=== PATIENT | female | born 1950 | race Caucasian/White ===

== ENCOUNTER → 2018-05-15 | Outpatient (CLI) | payer OTHER ==
--- NOTE | ~2018-05-15 | 2DMMODE ---
[facility] [email or web address] [address] 2 D/M-MODE ECHOCARDIOGRAM Name: BEN TARANGO Room #: REG [facility]#: [id number] Admission: 05/15/18 Attend Phys: Physician not on s Discharge: Date of : 54 Date of Service: 05/15/18 1218 Report #: [id number] THIS REPORT FOR: //name// APPROVED REPORT Study performed: 05/15/2018 11:01:43 EXAM: Comprehensive 2D, Doppler, and color-flow Echocardiogram Patient Location: Out-Patient Status: routine BSA: 1.65 HR: 90 bpm Rhythm: NSR Other Information Study Quality: Good Indications Hypertension/HDD 2D Dimensions RVDd: 25.42 mm IVSd: 9.05 (7-11mm) LVOT Diam: 20.16 (18-24mm) LVDd: 38.84 mm PWd: 8.99 (7-11mm) Ascending Ao: 25.55 (22-36mm) LVDs: 25.45 (25-40mm) Aortic Root: 25.38 mm Volumes Left Atrial Volume (Systole) Single Plane 4CH: 21.36 mL Single Plane 2CH: 42.65 mL LA ESV Index: 19.00 mL/m2 Aortic Valve AoV Peak Murtaza.: 1.43 m/s AO Peak Gr.: 8.22 mmHg LVOT Max P.84 mmHg LVOT Max V: 1.21 m/s HA Vmax: 2.69 cm2 Mitral Valve E/A Ratio: 0.7 MV Decel. Time: 186.84 ms MV E Max Murtaza.: 0.75 m/s [facility] [address] [place] [address] 2 D/M-MODE ECHOCARDIOGRAM Name: BEN TARANGO Room #: REG [facility]#: [id number] Admission: 05/15/18 Attend Phys: Physician not on s Discharge: Date of : 54 Date of Service: 05/15/18 1218 Report #: [id number] MV A Murtaza.: 1.01 m/s MV PHT: 54.18 ms IVRT: 124.57 ms Pulmonary Valve PV Peak Murtaza.: 1.07 m/s PV Peak Gr.: 4.56 mmHg Pulmonary Vein P Vein S: 0.87 m/s P Vein A: 0.16 m/s P Vein D: 0.48 m/s P Vein A Dur.: 110.7 msec P Vein S/D Ratio: 1.81 Tricuspid Valve TR Peak Murtaza.: 2.48 m/s RAP Estimate: 5.00 mmHg TR Peak Gr.: 24.63 mmHg PA Pressure: 30.00 mmHg Left Ventricle The left ventricle is normal size. There is normal LV segmental wall motion. There is normal left ventricular wall thickness. The left ventricular systolic function is normal. LVEF is 60-65%. Mild diastolic dysfunction is present (impaired relaxation pattern). Right Ventricle The right ventricle is normal size. The right ventricular systolic function is normal. Atria The left atrium size is normal. The right atrium size is normal. Aortic Valve Aortic valve leaflets are mildly thickened. Mild aortic regurgitation. There is no aortic valvular stenosis. Mitral Valve Mitral valve leaflets are mildly thickened. Mild mitral regurgitation. No evidence of mitral valve stenosis. Tricuspid Valve The tricuspid valve is normal in structure. Mild tricuspid regurgitation. Estimated PAP is 30mmHg. Pulmonic Valve The pulmonary valve is normal in structure. Trace pulmonic [facility] [address] [place] [address] 2 D/M-MODE ECHOCARDIOGRAM Name: BEN TARANGO Leandro Room #: REG [facility]#: [id number] Admission: 05/15/18 Attend Phys: Physician not on s Discharge: Date of : 54 Date of Service: 05/15/18 1218 Report #: [id number] regurgitation. Great Vessels The aortic root is normal in size. The ascending aorta is normal in size. IVC is normal in size and collapses >50% with inspiration. Pericardium There is no pericardial effusion. <Conclusion> The left ventricle is normal size. LVEF is 60-65%. Aortic valve leaflets are mildly thickened. Mild aortic regurgitation. Mitral valve leaflets are mildly thickened. Mild mitral regurgitation. The tricuspid valve is normal in structure. Mild tricuspid regurgitation. Estimated PAP is 30mmHg. The pulmonary valve is normal in structure. Trace pulmonic regurgitation. There is no pericardial effusion. <ELECTRONICALLY SIGNED> By: Stan Bonilla MD 05/15/188 17 17 Stan Bonilla MD /INF
== END ==
LOC: CV 09:27
DX: I10 Essential (primary) hypertension (principal); I08.3 Combined rheumatic disorders of mitral, aortic and tricuspid valves